=== PATIENT | female | born 1960 | race Caucasian/White ===

== ENCOUNTER 2016-09-04 12:53 | Outpatient (CLI) | payer MEDICARE ==
[2016-09-04 13:27] LABS: Anion Gap 13 mmol/L (10-20); BUN (Urea Nitrogen) 15 mg/dL (9.8-20.1); Calc. Creatinine Clearance 0 mL/min (70-130); Carbon Dioxide 22 mmol/L (22-29); Chloride 105 mmol/L (98-107); Estimated GFR-MDRD 56; Glucose 102 mg/dL (70-105); Potassium 3.9 mmol/L (3.5-5.1); Sodium 136 mmol/L (136-145)
[2016-09-04 17:13] LABS: Creatinine, Urine 90.99 mg/dL (47-110)
== END 2016-09-04 12:54 | disposition home or self-care (01) ==
LOC: MADLAB 12:53
PROVIDERS: ATTEND Internal Medicine Nephrology
DX: N18.3 Chronic kidney disease, stage 3 (moderate) (principal)
CPT/HCPCS: 36415; 80048; 82570; 84156

== ENCOUNTER 2016-09-09 08:27 | Outpatient (CLI) | payer MEDICARE ==
--- NOTE | 2016-09-09 10:20 | ULT ---
BILATERAL RENAL ULTRASOUND: Date: 09/09/16 HISTORY: Chronic renal disease. FINDINGS: The right kidney measures 9.5 cm in length and the left kidney measures 8.6 cm in length. Cortical e chogenicity and thickness is normal. No focal mass or hydronephrosis seen. Urinary bladder volume me asures 47 mL on the pre-void and 12 mL on post-void images. IMPRESSION: No significant abnormalities are seen. POS: [facility]
== END 2016-09-09 08:28 | disposition home or self-care (01) ==
LOC: MADULT 08:27
PROVIDERS: ATTEND Internal Medicine Nephrology
DX: N18.3 Chronic kidney disease, stage 3 (moderate) (principal)
CPT/HCPCS: 76770

== ENCOUNTER 2016-09-14 12:15 | Outpatient (CLI) | payer MEDICARE ==
[2016-09-14 12:35] LABS: #Basophils 0.1 thou/uL (0.0-0.2); #Eosinphils 0.1 thou/uL (0.0-0.7); #Lymphocytes 3.2 thou/uL (1.20-3.40); #Monocytes 0.6 thou/uL (0.11-0.59); #Neutrophils 6.2 thou/uL (1.40-6.50); %Basophils 0.9 % (0.0-1.0); %Eosinophils 0.9 % (0.0-10.0); %Lymphocytes 31.5 % (21.0-51.0); %Neutrophils 60.8 % (42.0-75.0); Hemoglobin 15.1 g/dL (12.0-16.0); Mean Corpuscular HGB CONC 32.4 g/dL (32.0-36.0); Mean Corpuscular Volume 98.7 fl (81.0-99.0); Mean Platelet Volume 7.1 fL (7.4-10.4); Platelet Count 247 thou/uL (130-400); RBC Distribution Width 13.5 % (11.5-14.5); Red Blood Cell (RBC) Count 4.73 mill/uL (4.20-5.40); White Blood Cell (WBC) Count 10.3 thou/uL (4.8-10.8)
[2016-09-14 12:51] LABS: Hemoglobin A1c 5.3 % (4.0-6.0)
[2016-09-14 12:53] LABS: ALT (SGPT) 17 U/L (0-55); AST (SGOT) 16 U/L (5-34); Albumin 4.1 g/dL (3.5-5.0); Alkaline Phosphatase 123 U/L (40-150); Anion Gap 13 mmol/L (10-20); BUN (Urea Nitrogen) 20 mg/dL (9.8-20.1); Bilirubin, Total 0.3 mg/dL (0.2-1.2); Calc. Creatinine Clearance 0 mL/min (70-130); Calcium 9.6 mg/dL (7.8-10.44); Carbon Dioxide 20 mmol/L (22-29); Chloride 106 mmol/L (98-107); Estimated GFR-MDRD 60; Globulin 2.4 g/dL (2.4-3.5); Glucose 101 mg/dL (70-105); Protein, Total 6.5 g/dL (6.0-8.3); Sodium 135 mmol/L (136-145)
[2016-09-14 13:10] LABS: Thyroid Stimulating Hormone 0.1575 uIU/mL (0.35-4.94)
[2016-09-14 16:32] LABS: Free T4 (Free Thyroxine) 0.83 ng/dL (0.70-1.48)
== END 2016-09-14 12:16 | disposition home or self-care (01) ==
LOC: MADLABBHPM 12:15
PROVIDERS: ATTEND Family Medicine
DX: R53.83 Other fatigue (principal); E53.8 Deficiency of other specified B group vitamins
CPT/HCPCS: 36415; 80053; 82607; 83036; 84439; 84443; 85025

== ENCOUNTER 2016-10-14 09:33 | Outpatient (CLI) | payer MEDICARE ==
[2016-10-14 10:52] LABS: Free T4 (Free Thyroxine) 0.95 ng/dL (0.70-1.48); Thyroid Stimulating Hormone 0.2997 uIU/mL (0.35-4.94)
== END 2016-10-14 09:34 | disposition home or self-care (01) ==
LOC: MADLABBHPM 09:33
PROVIDERS: ATTEND Family Medicine
DX: R94.6 Abnormal results of thyroid function studies (principal)
CPT/HCPCS: 36415; 84439; 84443

== ENCOUNTER 2017-01-01 12:45 | Outpatient (CLI) | payer MEDICARE ==
[2017-01-01 13:40] LABS: Anion Gap 14 mmol/L (10-20); BUN (Urea Nitrogen) 25 mg/dL (9.8-20.1); Calc. Creatinine Clearance 0 mL/min (70-130); Calcium 9.1 mg/dL (7.8-10.44); Carbon Dioxide 19 mmol/L (22-29); Chloride 110 mmol/L (98-107); Estimated GFR-MDRD 49; Glucose 89 mg/dL (70-105); Potassium 4.6 mmol/L (3.5-5.1); Sodium 138 mmol/L (136-145)
== END 2017-01-01 12:46 | disposition home or self-care (01) ==
LOC: MADLAB 12:45
PROVIDERS: ATTEND Internal Medicine Nephrology
DX: N18.2 Chronic kidney disease, stage 2 (mild) (principal)
CPT/HCPCS: 36415; 80048

== ENCOUNTER 2017-09-15 11:53 | Outpatient (CLI) | payer MEDICAID, MEDICARE ==
[2017-09-15 12:21] LABS: Bilirubin Negative (Negative); Blood, Urine Negative (Negative); Clarity Clear (Clear); Glucose, Urine (Dipstick) Negative (Negative); Leukocyte Negative (Negative); Nitrite Negative (Negative); Protein, Urine (Dipstick) Negative (Neg-Trace); Specific Gravity, Urine 1.015 (1.005-1.030); Urobilinogen 0.2 mg/dL (0.2-1.0)
[2017-09-15 12:40] LABS: #Basophils 0.1 thou/uL (0.0-0.2); #Eosinphils 0.1 thou/uL (0.0-0.7); #Lymphocytes 3.7 thou/uL (1.20-3.40); #Monocytes 0.7 thou/uL (0.11-0.59); #Neutrophils 5.7 thou/uL (1.40-6.50); %Basophils 1.2 % (0.0-1.0); %Neutrophils 54.8 % (42.0-75.0); Mean Corpuscular HGB CONC 34.4 g/dL (32.0-36.0); Mean Corpuscular Hemoglobin 32.4 pg (27.0-31.0); Mean Platelet Volume 6.6 fL (7.4-10.4); Platelet Count 241 thou/uL (130-400); RBC Distribution Width 11.6 % (11.5-14.5); Red Blood Cell (RBC) Count 5.25 mill/uL (4.20-5.40); White Blood Cell (WBC) Count 10.4 thou/uL (4.8-10.8)
[2017-09-15 12:49] LABS: ALT (SGPT) 21 U/L (8-55); AST (SGOT) 16 U/L (5-34); Albumin 4.3 g/dL (3.5-5.0); Alkaline Phosphatase 122 U/L (40-150); Anion Gap 16 mmol/L (10-20); BUN (Urea Nitrogen) 20 mg/dL (9.8-20.1); Bilirubin, Total 0.4 mg/dL (0.2-1.2); Calc. Creatinine Clearance 0 mL/min (70-130); Calcium 10.3 mg/dL (7.8-10.44); Carbon Dioxide 24 mmol/L (22-29); Cardiac Risk 3.4 (Less than 4.5); Chloride 101 mmol/L (98-107); Cholesterol 217 mg/dl (< 200 Desired); Estimated GFR-MDRD 54; Globulin 2.9 g/dL (2.4-3.5); Glucose 109 mg/dL (70-105); HDL Cholesterol 63 mg/dL (>60 Neg Risk); LDL Cholesterol, Calculated 133 mg/dL; Potassium 4.4 mmol/L (3.5-5.1); Protein, Total 7.2 g/dL (6.0-8.3); Sodium 137 mmol/L (136-145); Triglycerides 103 mg/dL (Less than 150)
[2017-09-15 13:08] LABS: Thyroid Stimulating Hormone 0.6069 uIU/mL (0.35-4.94)
[2017-09-15 14:07] LABS: Bacteria/HPF Rare-Few HPF (None Seen); RBC/HPF 0-3 HPF (0-3); Squamous Epithelial 0-3 HPF (0-3); WBC/HPF 0-3 HPF (0-3)
--- NOTE | 2017-09-15 14:25 | RAD ---
TWO VIEWS LEFT HIP: Date: 09-15-17 Comparison: None. History: Degenerative joint disease with chronic pain. FINDINGS: There is mild superior joint space narrowing. There is no displaced fracture or dislocation. IMPRESSION: No acute osseous abnormality. POS: [facility]
--- NOTE | 2017-09-15 14:27 | RAD ---
TWO VIEWS RIGHIT HIP: Date: 09-15-17 Comparison: None. History: Pain, degenerative joint disease. FINDINGS: No displaced fracture or evidence of dislocation. No significant degenerative change is noted. There is a sclerotic focus measuring 1.5 cm which overlies the acetabulum adjacent to the femoral hea d on both views. This suggests a nonspecific sclerotic bone lesion. IMPRESSION: 1. No acute osseous abnormality. 2. 1.5 cm probable sclerotic lesion within the acetabulum. Recommend follow up CT examination of the pelvis. Code T POS: [facility]
[2017-09-15 18:40] LABS: Free T4 (Free Thyroxine) 1.06 ng/dL (0.70-1.48)
== END 2017-09-15 11:54 | disposition home or self-care (01) ==
LOC: MADLABBHPM 11:53
PROVIDERS: ATTEND Family Medicine
DX: M25.552 Pain in left hip (principal); G89.29 Other chronic pain; M54.5 Low back pain; R23.8 Other skin changes; N18.2 Chronic kidney disease, stage 2 (mild); R94.6 Abnormal results of thyroid function studies; E78.2 Mixed hyperlipidemia; F17.200 Nicotine dependence, unspecified, uncomplicated
CPT/HCPCS: 36415; 80053; 80061; 81001; 84439; 84443; 85025

== ENCOUNTER → 2017-09-21 | Emergency (ER) | payer MEDICARE ==
[~2017-09-21] MED LIST: MORPHINE 10 MG/ML SYRINGE ONE; Morphine 10 MG/ML VIAL ONE; Ondansetron HCl/PF 4 MG/2 ML Vial ONE
--- NOTE | 2017-09-21 16:44 | RAD ---
PORTABLE CHEST ONE VIEW: 09/21/17 at 4:21 p.m. HISTORY: Chest pain and numbness in the left arm, hypertension. FINDINGS/IMPRESSION: Comparison made with the exam of 01/26/15. The heart size is normal. The aorta is tortuous. No lobar consolidation, pneumothorax or large effusi ons are seen. There is mild prominence of the pulmonary vascularity. POS: [facility]
[2017-09-21 17:00] LABS: #Basophils 0.1 thou/uL (0.0-0.2); #Eosinphils 0.1 thou/uL (0.0-0.7); #Lymphocytes 3.7 thou/uL (1.20-3.40); #Monocytes 0.7 thou/uL (0.11-0.59); #Neutrophils 6.4 thou/uL (1.40-6.50); %Basophils 0.5 % (0.0-1.0); %Eosinophils 0.9 % (0.0-10.0); %Lymphocytes 33.8 % (21.0-51.0); %Monocytes 6.4 % (0.0-10.0); %Neutrophils 58.4 % (42.0-75.0); Hemoglobin 15.5 g/dL (12.0-16.0); Mean Corpuscular HGB CONC 34.4 g/dL (32.0-36.0); Mean Corpuscular Hemoglobin 31.5 pg (27.0-31.0); Mean Corpuscular Volume 91.7 fl (81.0-99.0); Mean Platelet Volume 6.8 fL (7.4-10.4); Platelet Count 222 thou/uL (130-400); RBC Distribution Width 11.2 % (11.5-14.5); Red Blood Cell (RBC) Count 4.93 mill/uL (4.20-5.40); White Blood Cell (WBC) Count 10.9 thou/uL (4.8-10.8)
[2017-09-21 17:15] LABS: INR-International Normal Ratio 0.9; PTT 27.9 SEC (22.9-36.1); Prothrombin Time 11.7 SEC (12.0-14.7)
[2017-09-21 17:17] LABS: D-Dimer Test 0.32 *mcg/mL (0.27-0.43)
[2017-09-21 17:20] LABS: ALT (SGPT) 16 U/L (8-55); AST (SGOT) 14 U/L (5-34); Alkaline Phosphatase 112 U/L (40-150); Anion Gap 14 mmol/L (10-20); BUN (Urea Nitrogen) 29 mg/dL (9.8-20.1); Bilirubin, Total 0.3 mg/dL (0.2-1.2); CKMB 2.6 ng/mL (0-6.6); Calc. Creatinine Clearance 0 mL/min (70-130); Calcium 9.9 mg/dL (7.8-10.44); Carbon Dioxide 22 mmol/L (22-29); Chloride 102 mmol/L (98-107); Estimated GFR-MDRD 51; Globulin 2.6 g/dL (2.4-3.5); Glucose 103 mg/dL (70-105); Protein, Total 6.6 g/dL (6.0-8.3); Sodium 134 mmol/L (136-145); Troponin I Less than 0.010 ng/mL (< 0.028)
[2017-09-21 17:39] LABS: Bilirubin Negative (Negative); Blood, Urine Negative (Negative); Clarity Clear (Clear); Glucose, Urine (Dipstick) Negative (Negative); Leukocyte Negative (Negative); Nitrite Negative (Negative); Protein, Urine (Dipstick) Negative (Neg-Trace); Urobilinogen 0.2 mg/dL (0.2-1.0); pH, Urine 6.5 (5.0-9.0)
== END ==
LOC: MADERS 15:41
DX: K29.70 Gastritis, unspecified, without bleeding (principal); E78.5 Hyperlipidemia, unspecified; F41.9 Anxiety disorder, unspecified; F31.9 Bipolar disorder, unspecified; M79.7 Fibromyalgia; F17.210 Nicotine dependence, cigarettes, uncomplicated
CPT/HCPCS: 36415; 71045; 80053; 81003; 82553; 83690; 83735; 84484; 85025; 85379; 85610; 85730; 93005; 96374; 96375; J2270; J2405

== ENCOUNTER 2017-10-21 14:07 | Emergency (ER) | payer MEDICAID, MEDICARE ==
[2017-10-21] MEDS ORDERED: Diazepam 5 MG TAB ONE (14:30)
[2017-10-21] MEDS ORDERED: Morphine 10 MG/ML CARPUJECT ONE (14:37)
[2017-10-21] MEDS ORDERED: Sodium Chloride 0.9% 500 ML BAG ONE (14:37)
[2017-10-21] MEDS ORDERED: Fentanyl 100 MCG/2 ML VIAL ONE ×2 (15:12→16:34)
--- NOTE | 2017-10-21 15:49 | RAD ---
RIGHT SHOULDER THREE VIEWS: History: Pain. Fall. FINDINGS: There is a comminuted fracture of the right humeral neck which appears to be extending to the greater tuberosity. There is one-quarter shaft width medial displacement. IMPRESSION: Mildly comminuted humeral neck fracture extending to the greater tuberosity. POS: [facility]
== END 2017-10-21 17:03 | disposition short-term general hospital (02) ==
LOC: MADERS 14:07
DX: S42.251A Displaced fracture of greater tuberosity of right humerus, initial encounter for closed fracture (principal); M79.1 Myalgia; E78.5 Hyperlipidemia, unspecified; F41.9 Anxiety disorder, unspecified; F31.9 Bipolar disorder, unspecified; F17.210 Nicotine dependence, cigarettes, uncomplicated; W13.8XXA Fall from, out of or through other building or structure, initial encounter
CPT/HCPCS: 96361; 96374; 96375; 96376; J2270; J3010; J7050

== ENCOUNTER 2019-01-06 11:22 | Outpatient (CLI) | payer MEDICARE ==
[2019-01-06 11:50] LABS: #Basophils 0.1 thou/uL (0.0-0.2); #Eosinphils 0.1 thou/uL (0.0-0.7); #Lymphocytes 2.7 thou/uL (1.20-3.40); #Monocytes 0.6 thou/uL (0.11-0.59); #Neutrophils 5.4 thou/uL (1.40-6.50); %Basophils 0.6 % (0.0-1.0); %Eosinophils 1.6 % (0.0-10.0); %Monocytes 6.4 % (0.0-10.0); %Neutrophils 61.3 % (42.0-75.0); Hemoglobin 13.5 g/dL (12.0-16.0); Mean Corpuscular HGB CONC 33.1 g/dL (32.0-36.0); Mean Corpuscular Volume 93.4 fL (78.0-98.0); Mean Platelet Volume 6.7 fL (7.4-10.4); Platelet Count 184 thou/uL (130-400); RBC Distribution Width 12.1 % (11.5-14.5); Red Blood Cell (RBC) Count 4.37 mill/uL (4.20-5.40); White Blood Cell (WBC) Count 8.9 thou/uL (4.8-10.8)
[2019-01-06 12:06] LABS: ALT (SGPT) 25 U/L (8-55); AST (SGOT) 19 U/L (5-34); Albumin 3.6 g/dL (3.5-5.0); Alkaline Phosphatase 98 U/L (40-150); Anion Gap 14 mmol/L (10-20); BUN (Urea Nitrogen) 17 mg/dL (9.8-20.1); Bilirubin, Total 0.4 mg/dL (0.2-1.2); Calc. Creatinine Clearance 0 mL/min (70-130); Carbon Dioxide 24 mmol/L (22-29); Cardiac Risk 3.2 (Less than 4.5); Chloride 105 mmol/L (98-107); Cholesterol 155 mg/dl (< 200 Desired); Estimated GFR-MDRD 59; Globulin 2.1 g/dL (2.4-3.5); Glucose 121 mg/dL (70-105); HDL Cholesterol 49 mg/dL (>60 Neg Risk); LDL Cholesterol, Calculated 78 mg/dL; Potassium 3.5 mmol/L (3.5-5.1); Protein, Total 5.7 g/dL (6.0-8.3); Sodium 139 mmol/L (136-145); Triglycerides 139 mg/dL (Less than 150)
== END 2019-01-06 11:23 | disposition home or self-care (01) ==
LOC: MADLABBHPM 11:22
PROVIDERS: ATTEND Family Medicine
DX: E78.2 Mixed hyperlipidemia (principal); R06.09 Other forms of dyspnea; R60.0 Localized edema
CPT/HCPCS: 36415; 80053; 80061; 83880; 84443; 85025; 93005; 93010

== ENCOUNTER 2019-05-11 11:01 | Outpatient (CLI) | payer MEDICARE ==
[~2019-05-11 11:01] MED LIST changes: +Iopamidol 370 76% 100 ML VIAL ONE; -MORPHINE 10 MG/ML SYRINGE ONE; -Morphine 10 MG/ML VIAL ONE; -Ondansetron HCl/PF 4 MG/2 ML Vial ONE
--- NOTE | 2019-05-11 12:09 | CT ---
CT abdomen and pelvis with IV and oral contrast HISTORY: Abdominal pain and bloating. FINDINGS: Old incompletely healed bilateral lower rib fractures are apparent. The liver, spleen, kidn eys, adrenal glands, and pancreas are within normal limits. No enlarged lymph nodes or free fluid. Prominent calcification within the arterial structures. Urinary bladder is unremarkable. No evidence of bowel obstruction or inflammation. Appendix not well delineated. Sclerotic lesions within the right posterior acetabulum and the sacrum favored to be bone islands. Ut erus not visualized. Likely surgically absent. Prominent degenerative changes of the lumbar spine with posterior disc bulges at the L1-2 and L2-3 le vels. Foraminal stenoses at the L2-3 level and L5-S1 level. IMPRESSION: No acute abnormalities are demonstrated to explain the patient's symptoms. Atherosclerosis.
== END 2019-05-11 11:02 | disposition home or self-care (01) ==
LOC: MADLAB 11:01
PROVIDERS: ATTEND Family Medicine
DX: R14.0 Abdominal distension (gaseous) (principal)
CPT/HCPCS: 36415; 74177; 82565; Q9967

== ENCOUNTER 2020-04-02 11:01 | Outpatient (CLI) | payer MEDICARE ==
[2020-04-02 11:26] LABS: #Basophils 0.1 thou/uL (0.0-0.2); #Eosinphils 0.1 thou/uL (0.0-0.7); #Lymphocytes 2.7 thou/uL (1.20-3.40); #Monocytes 0.5 thou/uL (0.11-0.59); %Basophils 1.1 % (0.0-1.0); %Eosinophils 1.1 % (0.0-10.0); %Lymphocytes 37.2 % (21.0-51.0); %Monocytes 6.2 % (0.0-10.0); %Neutrophils 54.4 % (42.0-75.0); Hemoglobin 16.2 g/dL (12.0-16.0); Mean Corpuscular HGB CONC 31.4 g/dL (32.0-36.0); Mean Corpuscular Hemoglobin 30.5 pg (27.0-31.0); Mean Corpuscular Volume 97.1 fL (78.0-98.0); Mean Platelet Volume 7.6 fL (7.4-10.4); Platelet Count 174 thou/uL (130-400); RBC Distribution Width 11.7 % (11.5-14.5); White Blood Cell (WBC) Count 7.3 thou/uL (4.8-10.8)
[2020-04-02 11:41] LABS: ALT (SGPT) 17 U/L (8-55); AST (SGOT) 14 U/L (5-34); Albumin 3.9 g/dL (3.4-4.8); Alkaline Phosphatase 127 U/L (40-110); Anion Gap 15 mmol/L (10-20); BUN (Urea Nitrogen) 27 mg/dL (9.8-20.1); Bilirubin, Total 0.2 mg/dL (0.2-1.2); Calc. Creatinine Clearance 0 mL/min (70-130); Calcium 9.4 mg/dL (7.8-10.44); Carbon Dioxide 23 mmol/L (23-31); Cardiac Risk 2.8 (Less than 4.5); Chloride 107 mmol/L (98-107); Cholesterol 163 mg/dl (< 200 Desired); Estimated GFR-MDRD 46; Globulin 2.3 g/dL (2.4-3.5); Glucose 109 mg/dL (80-115); HDL Cholesterol 58 mg/dL (>60 Neg Risk); LDL Cholesterol, Calculated 88 mg/dL; Potassium 4.6 mmol/L (3.5-5.1); Protein, Total 6.2 g/dL (6.0-8.3); Sodium 140 mmol/L (136-145); Triglycerides 84 mg/dL (Less than 150)
[2020-04-02 11:56] LABS: Thyroid Stimulating Hormone 0.3836 uIU/mL (0.35-4.94)
--- NOTE | 2020-04-02 13:05 | RAD ---
PA AND LATERAL CHEST: Date: 04/02/2020 HISTORY: Cough. COMPARISON: 09/22/2019 exam. FINDINGS: Heart size within normal limits. There are atherosclerotic changes of the aorta. There is some vague parenchymal density seen in the right lung base. I cannot exclude this as an early infiltrative tyler e in this area. IMPRESSION: Questionable early right basilar infiltrate. POS: [facility]
[2020-04-02 17:37] LABS: Free T4 (Free Thyroxine) 0.86 ng/dL (0.70-1.48)
== END 2020-04-02 11:02 | disposition home or self-care (01) ==
LOC: MADLABBHPM 11:01
PROVIDERS: ATTEND Family Medicine
DX: R05 Cough (principal); R79.89 Other specified abnormal findings of blood chemistry; N18.9 Chronic kidney disease, unspecified; E78.2 Mixed hyperlipidemia
CPT/HCPCS: 36415; 71046; 80053; 80061; 84439; 84443; 85025

== ENCOUNTER 2021-04-14 11:26 | Outpatient (CLI) | payer MEDICARE ==
[2021-04-14 12:11] LABS: ALT (SGPT) 17 U/L (8-55); AST (SGOT) 18 U/L (5-34); Alkaline Phosphatase 122 U/L (40-110); Anion Gap 16 mmol/L (10-20); BUN (Urea Nitrogen) 15 mg/dL (9.8-20.1); Bilirubin, Total 0.8 mg/dL (0.2-1.2); Calc. Creatinine Clearance 0 mL/min (70-130); Calcium 9.1 mg/dL (7.8-10.44); Carbon Dioxide 18 mmol/L (23-31); Chloride 106 mmol/L (98-107); Globulin 2.4 g/dL (2.4-3.5); Glucose 117 mg/dL (80-115); Potassium 4.3 mmol/L (3.5-5.1); Protein, Total 6.4 g/dL (5.8-8.1); Sodium 136 mmol/L (136-145)
== END 2021-04-14 11:27 | disposition home or self-care (01) ==
LOC: MADLAB 11:26
PROVIDERS: ATTEND Family Medicine
DX: R07.89 Other chest pain (principal); R10.13 Epigastric pain; R14.0 Abdominal distension (gaseous)
CPT/HCPCS: 36415; 71046; 80053

== ENCOUNTER 2022-03-15 14:21 | Emergency (ER) | payer MEDICARE ==
[2022-03-15] MEDS ORDERED: Morphine 4 MG/ML VIAL ONE (15:23)
[2022-03-15 15:42] LABS: ALT (SGPT) 15 U/L (8-55); AST (SGOT) 15 U/L (5-34); Albumin 4.1 g/dL (3.4-4.8); Alkaline Phosphatase 121 U/L (40-110); Anion Gap 13 mmol/L (10-20); BUN (Urea Nitrogen) 19 mg/dL (9.8-20.1); Bilirubin, Total 0.7 mg/dL (0.2-1.2); Calc. Creatinine Clearance 0 mL/min (70-130); Calcium 9.8 mg/dL (7.8-10.44); Carbon Dioxide 20 mmol/L (23-31); Chloride 107 mmol/L (98-107); Estimated GFR 51; Globulin 2.7 g/dL (2.4-3.5); Glucose 115 mg/dL (80-115); Magnesium 2.2 mg/dL (1.6-2.6); Potassium 4.2 mmol/L (3.5-5.1); Protein, Total 6.8 g/dL (5.8-8.1); Sodium 136 mmol/L (136-145)
[2022-03-15 15:49] LABS: Troponin I 0.018 ng/mL (< 0.028)
[2022-03-15] MEDS ORDERED: methylPREDNISolone Sod Succ/PF 125 MG/2 ML VIAL ONE (16:32)
== END 2022-03-15 16:35 | disposition home or self-care (01) ==
LOC: MADERS 14:21
DX: J02.9 Acute pharyngitis, unspecified (principal); R07.89 Other chest pain; H92.03 Otalgia, bilateral; E78.00 Pure hypercholesterolemia, unspecified; M79.7 Fibromyalgia; F17.210 Nicotine dependence, cigarettes, uncomplicated; Z20.822 Contact with and (suspected) exposure to COVID-19; Z79.899 Other long term (current) drug therapy
CPT/HCPCS: 71045; 80053; 83735; 84484; 87081; 87430; 87804 ×2; 93005; U0003; U0005; 96374; 96375; J2270; J2930

== ENCOUNTER 2023-03-04 11:38 | Outpatient (CLI) | payer OTHER | END 2023-03-04 11:39 | disposition home or self-care (01) | LOC: MADRAD 11:38 | PROVIDERS: ATTEND Internal Medicine | DX: J45.50 Severe persistent asthma, uncomplicated (principal) | CPT/HCPCS: 71046 ==

== ENCOUNTER 2023-07-05 12:55 | Emergency (ER) | payer OTHER ==
[2023-07-05] MEDS ORDERED: fentaNYL 50 mcg/mL 1 mL Vial ONE (14:26)
[2023-07-05] MEDS ORDERED: Dexamethasone 10 MG/ML VIAL ONE (14:26)
[2023-07-05] MEDS ORDERED: Meclizine HCl 25 MG TAB ONE (14:26)
[2023-07-05] MEDS ORDERED: Prochlorperazine 10 MG/2 ML VIAL ONE (14:26)
[2023-07-05 14:37] LABS: #Basophils 0.1 thou/uL (0.0-0.2); #Eosinphils 0.1 thou/uL (0.0-0.7); #Lymphocytes 3.2 thou/uL (1.20-3.40); #Monocytes 0.6 thou/uL (0.11-0.59); #Neutrophils 3.8 thou/uL (1.40-6.50); %Basophils 1.1 % (0.0-1.0); %Eosinophils 1.6 % (0.0-10.0); %Lymphocytes 40.8 % (21.0-51.0); %Monocytes 7.4 % (0.0-10.0); %Neutrophils 49.1 % (42.0-75.0); Hematocrit 47.3 % (36.0-47.0); Hemoglobin 15.2 g/dL (12.0-16.0); Mean Corpuscular HGB CONC 32.2 g/dL (32.0-36.0); Mean Corpuscular Hemoglobin 31.1 pg (27.0-31.0); Mean Corpuscular Volume 96.7 fl (78.0-98.0); Platelet Count 164 10x3/uL (130-400); Red Blood Cell (RBC) Count 4.88 mill/uL (4.20-5.40); White Blood Cell (WBC) Count 7.8 10x3/uL (4.8-10.8)
[2023-07-05 14:45] LABS: INR-International Normal Ratio 0.9; Prothrombin Time 12.8 sec (12.0-14.7)
[2023-07-05 14:56] LABS: ALT (SGPT) 14 U/L (8-55); AST (SGOT) 15 U/L (5-34); Alkaline Phosphatase 110 U/L (40-110); Anion Gap 12 mmol/L (10-20); BUN (Urea Nitrogen) 12 mg/dL (9.8-20.1); Bilirubin, Total 0.5 mg/dL (0.2-1.2); Calc. Creatinine Clearance 0 mL/min (70-130); Calcium 9.3 mg/dL (7.8-10.44); Carbon Dioxide 24 mmol/L (23-31); Chloride 108 mmol/L (98-107); Estimated GFR 60; Globulin 2.3 g/dL (2.4-3.5); Glucose 102 mg/dL (80-115); Lipase 6 U/L (8-78); Potassium 3.5 mmol/L (3.5-5.1); Protein, Total 6.3 g/dL (5.8-8.1); Sodium 140 mmol/L (136-145)
== END 2023-07-05 15:50 | disposition home or self-care (01) ==
LOC: MADERS 12:55
DX: S06.0X0A Concussion without loss of consciousness, initial encounter (principal); S33.5XXA Sprain of ligaments of lumbar spine, initial encounter; M48.02 Spinal stenosis, cervical region; E78.00 Pure hypercholesterolemia, unspecified; F17.210 Nicotine dependence, cigarettes, uncomplicated; V49.9XXA Car occupant (driver) (passenger) injured in unspecified traffic accident, initial encounter; W22.11XA Striking against or struck by driver side automobile airbag, initial encounter; Z79.899 Other long term (current) drug therapy
CPT/HCPCS: 36415; 70450; 71046; 72125; 72128; 72131; 80053; 83690; 85025; 85610; 85730; 94760; 96374; 96375; J0780; J1100; J3010